=== PATIENT | male | born 1960 | race Caucasian/White ===

== ENCOUNTER 2025-01-13 16:47 | Emergency (ER) | payer BC, SELFPAY ==
--- NOTE | ~2025-01-13 | XR_ITS ---
CLINICAL HISTORY: pain 2 view chest x-ray Comparison: None Findings: No consolidation or effusion. Normal size heart. No acute fracture. IMPRESSION: 1. No acute findings. This document has been electronically signed by: Gaston Nguyen MD on 01/13/2025 19:14:40
--- NOTE | 2025-01-13 17:11 | ECG_ITS ---
Test Reason : chest pain Blood Pressure : */* mmHG Vent. Rate : 78 BPM Atrial Rate : 78 BPM P-R Int : 154 ms QRS Dur : 78 ms QT Int : 372 ms P-R-T Axes : 46 -11 23 degrees QTcB Int : 424 ms Normal sinus rhythm Inferior infarct , age undetermined Abnormal ECG When compared with ECG of 05-May-2009 21:11, MANUAL COMPARISON REQUIRED PREVIOUS ECG IS INCOMPATIBLE Referred By: Zane Newman Electronically Signed By: RANDEE WILLOUGHBY MD
[2025-01-13 17:37] LABS: MANUAL DIFF FLAG NO
[2025-01-13 17:46] LABS: Basophils Percent Auto 0.6 % (0-2); Eosinophils Absolute Auto 0.7 X10*3/uL (0.0-0.4); Eosinophils Percent Auto 9.8 % (0-4); Hematocrit 43.5 % (42.0-52.0); Hemoglobin 14.9 g/dl (14.0-18.0); Imm Gran Abs Auto 0.02 X10*3/uL (0.00-0.03); Imm Gran Pct Auto 0.3 % (0.0-0.4); Lymphocytes Absolute Auto 1.7 X10*3/uL (1.2-4.9); Mean Corpuscular HGB Conc 34.3 g/dl (31.0-36.0); Mean Corpuscular Hemoglobin 31.5 pg (27.0-33.0); Monocytes Absolute Auto 0.6 X10*3/uL (0.1-1.2); Monocytes Percent Auto 8.5 % (2-11); Neutrophils Absolute Auto 3.9 x10*3/uL (2.0-8.3); Neutrophils Percent Auto 56.8 % (45-73); Platelet Count 248 X10*3/uL (160-400); Red Blood Count 4.73 X10*6/uL (4.60-5.80); Red Cell Distribution Width 12.6 % (11.0-16.0); White Blood Count 6.9 X10*3/uL (4.8-10.8)
[2025-01-13 17:49] LABS: Prothrombin Time 11.3 SEC (10.9-12.4)
[2025-01-13 18:01] VITALS: BP 145/92; PULSE 76; RESP 16; TEMP 36.7; O2SAT 99; BMI 29.4
--- NOTE | 2025-01-13 18:02 | ED_ITS ---
HPI - General Adult General Chief complaint: Chest Pain Stated complaint: sob started left side Time Seen by Provider: 01/13/25 19:52 Source: patient, RN notes reviewed and old records reviewed Mode of arrival: ambulatory Limitations: no limitations History of Present Illness ED Provider: Trent OQUENDO narrative: 64-year-old male past medical history significant for hypertension presents for evaluation of left-sided chest pain. His symptoms have been present for the last 2 days but seemed to be worsening today He reports cramping under his left armpit and into his left hand. He denies any history of coronary artery disease Denies any cough, shortness of breath. The patient reports a 4/10 chest pain currently. His pain is random and not related to exertion Related Data Allergies Allergy/AdvReac Type Severity Reaction Status Date / Time No Known Allergies Allergy Verified 01/13/25 18:03 Review of Systems 2 Constitutional: Constitutional: Denies body ache(s), Denies chills, Denies fever(s) and Denies headache(s) Eyes: Eyes: Denies blurry vision ENT: Denies vertigo and Denies headache(s) Cardiovascular: Cardiovascular: Reports chest pain and Denies dyspnea Respiratory: Respiratory: Denies cough and Denies dyspnea Gastrointestinal: Gastrointestinal: Denies abdominal pain, Denies nausea and Denies vomiting Musculoskeletal: Musculoskeletal: Denies back pain Integumentary/Breasts: Skin/Breast: Denies rash Neurologic: Denies vertigo and Denies headache(s) PMFSH Social History Social History Advance Directives: No Advance Directives Information Provided: No Physical Exam ED Vital Signs: Vital Signs - 24 hr 01/13/25 18:01 01/13/25 19:50 Temperature 98.0 F 98.1 F Pulse Rate 76 76 Respiratory Rate 16 14 Blood Pressure 145/92 H 135/93 H Pulse Oximetry 99 97 Oxygen Delivery Method Room Air Room Air BMI result Body Mass Index 29.4 Const General: healthy appearing, comfortable, no acute distress, alert and awake Nutritional Appearance: well nourished Orientation/consciousness: patient oriented x3 HENMT Head: Yes normocephalic and Yes atraumatic Eyes Eyelids: Yes eyelids normal Conjunctivae: conjunctivae normal Sclerae: sclerae normal Corneas: corneas normal Pupils: Equal, round and reactive pupils present EOM: EOMs intact bilaterally Neck Neck: Yes full ROM Chest Chest palpation & inspection: normal inspection of the chest, normal palpation of entire chest wall and no crepitus Resp Effort & Inspection: normal respiratory effort, able to speak in complete sentences, no audible wheezes and not labored Auscultation: clear to auscultation bilaterally Cardio Rate: regular rate Rhythm: regular rhythm GI Inspection: No distended Palpation (GI): Soft to palpation, not firm, nontender, no guarding and not rigid Skin General skin exam: elasticity normal Neuro General: patient oriented x3 Cranial nerves: Yes Equal, round and reactive pupils present and Yes Bilaterally intact EOM present Cognition (Neuro): normal cognition Extrem Other: Moving all extremities well without any obvious deformities Course Course Course Narrative: RME, this is a rapid medical exam performed by Cedric Newman please refer to primary provider for complete H&P- 64-year-old male presents for evaluation of left-sided chest pain for the last 2 days. He had an EKG on arrival, plan for labs, chest x-ray Medical Decision Making Medical Decision Making [facility] Narrative: 64-year-old male presents for evaluation of chest pain. He has had chest pain for 2 days, his EKG does not show any ST segment elevations or depressions. It does show T-wave inversions in lead 3. Age indeterminate as there was no previous for comparison. However the patient has had 2 days of chest pain, his troponin is undetectable and therefore rules out for ACS. His blood pressure is mildly elevated. He has no abdominal pain to suggest AAA. He has no respiratory symptoms and has a clear chest x-ray. The patient does report he was sick a couple of weeks ago his symptoms may be related to costochondritis. Differential Diagnosis Differential Diagnoses: The differential diagnosis associated with the presentation includes Chest pain Chest wall pain Costochondritis Pneumonia ACS Admission/Observation Consideration of admission/observation: Escalation of care including admission/observation considered Patient ruled out for ACS Lab Data [facility] Lab Attestation statement: I reviewed the patient's lab results. No leukocytosis or anemia. Normal platelet count. No electrolyte abnormalities. Troponin undetectable 01/13/25 17:25 01/13/25 17:25 Labs: Lab Results 01/13/25 Range/Units 17:25 WBC 6.9 (4.8-10.8) X10*3/uL RBC 4.73 (4.60-5.80) X10*6/uL Hgb 14.9 (14.0-18.0) g/dl Hct 43.5 (42.0-52.0) % MCV 92.0 (80.0-98.0) fL MCH 31.5 (27.0-33.0) pg MCHC 34.3 (31.0-36.0) g/dl RDW 12.6 (11.0-16.0) % Plt Count 248 (160-400) X10*3/uL MPV 9.0 L (9.4-12.4) fL Immature Gran % (Auto) 0.3 (0.0-0.4) % Neut % (Auto) 56.8 (45-73) % Lymph % (Auto) 24.0 (20-40) % [place] % (Auto) 8.5 (2-11) % Eos % (Auto) 9.8 H (0-4) % Baso % (Auto) 0.6 (0-2) % Lymph # (Auto) 1.7 (1.2-4.9) X10*3/uL [place] # (Auto) 0.6 (0.1-1.2) X10*3/uL Eos # (Auto) 0.7 H (0.0-0.4) X10*3/uL Baso # (Auto) 0.0 (0.0-0.2) X10*3/uL Abs Immat Gran (auto) 0.02 (0.00-0.03) X10*3/uL Absolute Neuts (auto) 3.9 (2.0-8.3) x10*3/uL Absolute Nucleated RBC 0.000 (0.0-0.012) X10*3/uL Nucleated RBC % (auto) 0.0 (0.0-0.2) /100WBC PT 11.3 (10.9-12.4) SEC INR 1.0 (0.9-1.1) Sodium 138 (135-145) mmol/L Potassium 3.7 (3.3-5.1) mmol/L Chloride 105 (96-108) mmol/L Carbon Dioxide 26 (22-29) mmol/L Anion Gap 11 L (12-20) BUN 18 H (9-16) mg/dL Creatinine 1.04 (0.5-1.4) mg/dL Estim Creat Clear Calc 74.2 Estimated GFR > 60 Random Glucose 80 (60-115) mg/dL Calcium 8.9 (8.4-10.2) mg/dL Total Bilirubin 0.5 (0.0-1.0) mg/dL AST 31 (5-37) U/L ALT 22 (0-40) U/L Alkaline Phosphatase 58 (39-117) U/L Troponin I High Sens < 2.7 (<3.5-35.0) ng/L Total Protein 7.1 (6.5-8.0) g/dL Albumin 4.0 (3.5-5.0) g/dL Lipase 40 (8-78) U/L Influenza Type A (PCR) NEGATIVE (Negative) Influenza Type B (PCR) NEGATIVE (Negative) RSV RNA Qual (PCR) NEGATIVE (Negative) SARS-CoV-2 RNA (RT-PCR) NEGATIVE (Negative) Independent Interpretation I performed an independent interpretation of an: EKG (Normal sinus rhythm with a rate of 78 beats minute. T-wave inversion in lead 3. No ST segment changes) and Plain X-Ray Interpretation: Agree with Radiology interpretation Radiology Impression Discussion of test interpretation with radiology: I have reviewed the radiologist's reading. Radiologist Impression: Findings: No consolidation or effusion. Normal size heart. No acute fracture. IMPRESSION: 1. No acute findings. This document has been electronically signed by: Gaston Nguyen MD on 01/13/2025 19:14:40 Discharge Plan Discharge Clinical Impression: Chest pain Patient Disposition: Home, Self-Care Instructions: Chest Pain (ED) Additional Instructions: Your workup in the ER today was reassuring This includes your blood work, chest x-ray. You did have a very small change in your EKG I recommend that you follow up with Cardiology due to this You may follow-up with the office of Dr. Pickard Return for new or worsening symptoms Referrals: Abraham Pickard MD [Physician] - (chest pain. abnormal ekg) Print Language: Yakut
[2025-01-13 18:04] LABS: Alanine Aminotransferase 22 U/L (0-40); Alkaline Phosphatase 58 U/L (39-117); Anion Gap 11 (12-20); Aspartate Amino Transferase 31 U/L (5-37); Bilirubin Total 0.5 mg/dL (0.0-1.0); Blood Urea Nitrogen 18 mg/dL (9-16); Calcium 8.9 mg/dL (8.4-10.2); Carbon Dioxide 26 mmol/L (22-29); Chloride 105 mmol/L (96-108); Creatinine Clr Calc Pharmacy 74.2; Estimated Glomerular Filt Rate > 60; Glucose Random 80 mg/dL (60-115); Lipase 40 U/L (8-78); Potassium 3.7 mmol/L (3.3-5.1); Sodium 138 mmol/L (135-145); Total Protein 7.1 g/dL (6.5-8.0)
[2025-01-13 18:12] LABS: Troponin-I High Sensitivity < 2.7 ng/L (<3.5-35.0)
[2025-01-13 18:21] LABS: Influenza A PCR NEGATIVE (Negative); Influenza B PCR NEGATIVE (Negative); Resp Syncy Virus RNA Qual PCR NEGATIVE (Negative); SARS COV2 PCR INHOUSE NEGATIVE (Negative)
[2025-01-13 19:50] VITALS: BP 135/93; PULSE 76; RESP 14; TEMP 36.7; O2SAT 97
--- OUTSIDE RECORDS SUMMARY | 2025-01-13 20:02 | XMS_ITS | Encounter Summary ---
Author Organization [facility] Address [address] [place] [address] Care Team Providers Care Medical Associate Name Role Phone Felix Carrington MD Primary Care Provider [phone] Reason for Referral * Outpatient Surgery (Routine) - Closed Specialty Diagnoses / Procedures Referred By Michael farah Referred To Contact Orthopedic Surgery Diagnoses Sacroiliitis, not elsewhere classified Issac Vargas MD [address] [place] [address] Referral ID Status Reason Start Date Expiration Date Visits Re quested Visits Authorized [id number] Closed 10/06/2023 10/06/2024 1 1 Question Answer Primary Procedure: 35375 - FLUOR SAC INJ Additional Procedure(s): None Procedure: RIGHT SACROILIAC JOINT INJECTION Surgery Date 10/21/2023 Performing Location: [facility] Duration (Mins): 15 Laterality: Right Anesthesia: LOCAL Workers Comp? Yes Encounter Details Date Type Department Care Team (Late st Contact Info) Description 10/06/2023 [facility] [address] [phone] Issac Vargas MD [address] [place] [id number] Sacroiliitis, not elsewhere classified (HCC) (Primary Dx) Social History Tobacco Use Types Packs/Day Years Used Date Smoking Tobacco: Never Assessed Sex and Gender Information Value Date Recorded Sex Assigned at Not on file Gender Identity Not on file Sexual Orientation Not on file documented as of this encounter Plan of Treatment Scheduled Referrals Name Type Priority Associated Diagnoses Order Schedule RIGHT SACROILIAC JOINT INJECTION Outpatient Referral Routine Sacroiliitis, not elsewhere classified (HCC) Ordered: 10/06/2023 documented as of this encounter Visit Diagnoses Diagnosis Sacroiliitis, not elsewhere classified- Primary documented in this encounter Care Teams Medical Associate Relationship Specialty Start Date End Date Felix Carrington MD [address] [place] [address] PCP - General 05/22/23 documented as of this encounter
--- OUTSIDE RECORDS SUMMARY | 2025-01-13 20:02 | XMS_ITS | Clinical Summary ---
Author Organization [facility] Address [address] [place] [address] Care Team Providers Care Nutrition Services Assistant Name Role Phone Felix Carrington MD Primary Care Provider [phone] Allergies No known active allergies Medications No known medications Active Problems Problem Noted Date Diagnosed Date Sacroiliitis 06/08/2023 Social History Tobacco Use Types Packs/Day Years Used Date Smoking Tobacco: Never Assessed Sex and Gender Information Value Date Recorded Sex Assigned at Not on file Gender Identity Not on file Sexual Orientation Not on file Last Filed Vital Signs Vital Sign Reading Time Taken Comments Blood Pressure 130/76 11/12/2023 9:27 AM EST Pulse 71 11/12/2023 9:27 AM EST Temperature - - Respiratory Rate - - Oxygen Saturation 97% 11/12/2023 9:27 AM EST Inhaled Oxygen Concentration - - Weight 82.6 kg (182 lb) 11/12/2023 9:27 AM EST Height 167.6 cm (5' 6 ) 11/12/2023 9:27 AM EST Body Mass Index 29.38 11/12/2023 9:27 AM EST Plan of Treatment Health Maintenance Due Date Last Done Comments Hepatitis C Virus Screening 1962 HIV Screening 1975 DTaP/Tdap/Td Vaccines (1 - Tdap) 1981 Colonoscopy 2007 Pneumococcal Vaccines 50+ (1 of 1 - PCV) 2012 Zoster (Shingles) Vaccine (1 of 2) 2012 Influenza Vaccine 06/30/2024 09/06/2020 COVID-19 Vaccine ( - 2023-2 5 season) 2024 RSV Vaccine 60 years and old er and Patients (1 - 1-dose 75+ series) 2037 Hepatitis B Vaccines Aged Out No long er eligible based on patient's age to complete this topic Pneumococcal Vaccine: Pediat zoey (0-5 Years) and At-Risk Patients (6 to 49 Years) Aged Out No longer eligible b ased on patient's age to complete this topic Advance Directives Documents on File Type Date Recorded Patient Health Sciences Program Coordinator Expl anation Advance Directive-Scan 10/07/2023 BOOKI NG Advance Directive-Scan 10/02/2023 [facility] Direct[facility]-Scan 08/28/2023 W/C C ORRESPONDANCE Care Teams Nutrition Services Assistant Relationship Specialty Start Date End Date Felix Carrington MD [address] [place] [address] PCP - General 05/22/23
--- OUTSIDE RECORDS SUMMARY | 2025-01-13 20:02 | XMS_ITS | Encounter Summary ---
Author Organization [facility] Address [address] [place] [address] Care Team Providers Care Complaint Analyst Name Role Phone Felix Carrington MD Primary Care Provider [phone] Encounter Details Date Type Department Care Team (Late st Contact Info) Description 02/16/2024 [facility] [address] [phone] Issac Vargas MD [address] [address] Social History Tobacco Use Types Packs/Day Years Used Date Smoking Tobacco: Never Assessed Sex and Gender Information Value Date Recorded Sex Assigned at Not on file Gender Identity Not on file Sexual Orientation Not on file documented as of this encounter Plan of Treatment Not on file documented as of this encounter Visit Diagnoses Not on filedocumented in this encounter Care Teams Complaint Analyst Relationship Specialty Start Date End Date Felix Carrington MD [address] [place] [address] PCP - General 05/22/23 documented as of this encounter
--- OUTSIDE RECORDS SUMMARY | 2025-01-13 20:02 | XMS_ITS | Encounter Summary ---
Author Organization [facility] Address [address] [place] [address] Care Team Providers Care Truck Safety Inspector Name Role Phone Felix Carrington MD Primary Care Provider [phone] Encounter Details Date Type Department Care Team (Late st Contact Info) Description 02/10/2024 Scanned Document [facility] [address] [phone] Issac Vargas MD [address] [place] [phone] Social History Tobacco Use Types Packs/Day Years Used Date Smoking Tobacco: Never Assessed Sex and Gender Information Value Date Recorded Sex Assigned at Not on file Gender Identity Not on file Sexual Orientation Not on file documented as of this encounter Plan of Treatment Not on file documented as of this encounter Visit Diagnoses Not on filedocumented in this encounter Care Teams Truck Safety Inspector Relationship Specialty Start Date End Date Felix Carrington MD [address] [place] [address] PCP - General 05/22/23 documented as of this encounter
--- OUTSIDE RECORDS SUMMARY | 2025-01-13 20:02 | XMS_ITS ---
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
--- OUTSIDE RECORDS SUMMARY | 2025-01-13 20:02 | XMS_ITS | Encounter Summary ---
Author Organization [facility] Address [address] [place] [address] Care Team Providers Care Eight Arm Operator Name Role Phone Felix Carrington MD Primary Care Provider [phone] Encounter Details Date Type Department Care Team (Late st Contact Info) Description 10/21/2023 Scanned Document [facility] [address] [phone] Issac Vargas MD [address] [place] [address] Social History Tobacco Use Types Packs/Day Years Used Date Smoking Tobacco: Never Assessed Sex and Gender Information Value Date Recorded Sex Assigned at Not on file Gender Identity Not on file Sexual Orientation Not on file documented as of this encounter Plan of Treatment Not on file documented as of this encounter Visit Diagnoses Not on filedocumented in this encounter Care Teams Eight Arm Operator Relationship Specialty Start Date End Date Felix Carrington MD [address] [place] [address] PCP - General 05/22/23 documented as of this encounter
--- OUTSIDE RECORDS SUMMARY | 2025-01-13 20:02 | XMS_ITS | Encounter Summary ---
Author Organization [facility] Address [address] [place] [address] Care Team Providers Care Toll Relief Operator Name Role Phone Felix Carrington MD Primary Care Provider [phone] Encounter Details Date Type Department Care Team (Late st Contact Info) Description 02/10/2024 Scanned Document [facility] [address] [phone] Issac Vargas MD [address] [place] [phone] Social History Tobacco Use Types Packs/Day Years Used Date Smoking Tobacco: Never Assessed Sex and Gender Information Value Date Recorded Sex Assigned at Not on file Gender Identity Not on file Sexual Orientation Not on file documented as of this encounter Plan of Treatment Not on file documented as of this encounter Visit Diagnoses Not on filedocumented in this encounter Care Teams Toll Relief Operator Relationship Specialty Start Date End Date Felix Carrington MD [address] [place] [address] PCP - General 05/22/23 documented as of this encounter
[2025-01-13 20:15] VITALS: BP 135/93; PULSE 76; RESP 14; TEMP 36.7; O2SAT 97
== END 2025-01-13 20:16 | disposition home or self-care (01) ==
PROVIDERS: Physician Assistant; Emergency Provider Emergency Medicine; PCP Internal Medicine
DX: R07.89 Other chest pain (principal); R06.02 Shortness of breath; I10 Essential (primary) hypertension; R94.31 Abnormal electrocardiogram [ECG] [EKG]; Z03.818 Encounter for observation for suspected exposure to other biological agents ruled out; Z79.899 Other long term (current) drug therapy
CPT/HCPCS: 0241U; 71046; 80053; 83690; 84484; 85025; 85610; 93005; 99283

== ENCOUNTER → 2025-01-13 17:11 | Outpatient (BNV) | payer BC, SELFPAY | PROVIDERS: Emergency Provider Emergency Medicine; PCP Internal Medicine; Visit Provider Internal Medicine Cardiovascular Disease | DX: R94.31 Abnormal electrocardiogram [ECG] [EKG] (principal); R07.9 Chest pain, unspecified | CPT/HCPCS: 93010 ==

== ENCOUNTER → 2025-01-13 17:23 | Outpatient (BNV) | payer BC, SELFPAY | PROVIDERS: PCP Internal Medicine; Visit Provider Radiology Diagnostic Radiology | DX: R07.9 Chest pain, unspecified (principal) | CPT/HCPCS: 71046 ==